=== PATIENT | male | born 1990 | race Caucasian/White ===

== ENCOUNTER 2025-04-19 07:47 | Outpatient (AMB) | payer BC, SELFPAY ==
--- NOTE | 2025-04-19 07:52 | A.OFFVIS_ITS ---
Intake Visit Reasons: Vasectomy consult Intake Note: New Patient is present for Vasectomy consult Urology Rx:none Blood Thinners:none Imaging completed: none Children#4 , Expecting #0 Press Operator Automatic Required: No Accompanied by: Self / Same As Patient Allergies No Known Allergies Allergy (Verified 04/19/25 08:41) Medication List - Last Reconciled 04/19/25 by ARLETTE Phillips No Known Home Meds HPI Comments Details: Dany is a very pleasant 34-year-old male patient of Dr. Pantoja. He presents to the office today for - vasectomy evaluation Vasectomy evaluation The patient presents for vasectomy consultation.? He is currently He has fathered 4 children, with 2 partners The youngest child is 3-month-old His partner is aware and permissive for a vasectomy Current form of control is hormones Current employment is heavy equipment sales associate The vasectomy may be complicated due to a history of no complicating issues. Patient education has been provided via [employer] video, via printed information, risks of failure, recovery time, bruising and potential pain syndrome have been stressed Discussion today focused on the presence of vasectomy and the risks, benefits and alternatives that are available. Vasectomy as intended as a permanent form of control. Printed information and literature was provided to the patient. Overall there is a one in 2500 failure rate. This can occur at any time after vasectomy. Risks were discussed highlighting hematoma, spermatocele, epididymal congestion, development of sperm antibodies, and development of chronic pain estimated between 1-5%. The procedure was reviewed in detail. Anatomical diagrams of the male genitalia were used to explain the location of the vas deferens. The vas deferens will be transected, the proximal end will be cauterized, a metal clip would be applied to separate the 2 vas deferens ends. It was explained the procedure will be done in the office and takes approximately 10-15 minutes. Less common problems that arise with vasectomy include hematoma, bleeding, al lergic reaction to anesthetic, epididymal infection, epididymal congestion, scrotal discomfort, spermatic leak, spermatic granuloma and the possibility of antisperm antibodies. He understands these risks and wishes to proceed. Consent was signed at the office today. He also understands that it takes 12 weeks for sperm to fully clear the system. He will need to provide a semen sample at 12 weeks and if this is not clear a 2nd sample at 16 weeks. Medical clearance to stop using protection will only be provided if he satisfies published criteria for sperm clearance. Review of Systems Const All systems reviewed & are unremarkable except as noted in HPI and below Physical Exam Const General: cooperative, healthy appearing, comfortable, no acute distress, well developed, alert and awake Orientation/consciousness: patient oriented x3 Limitations: no limitations HEENT Head: Yes normal to inspection, Yes normocephalic and Yes atraumatic Ears: hearing grossly normal bilaterally Eyes General: appearance normal, both eyes and all related structures Neck Neck: Yes normal visual inspection and Yes trachea midline Chest Chest palpation & inspection: normal inspection of the chest Resp Effort & Inspection: normal respiratory effort and able to speak in complete sentences Cardio Rate: regular rate GI Inspection: Yes normal to inspection General: Yes no CVA tenderness Back/Spine/Pelvis Back: no CVA tenderness Skin General skin exam: no rashes or lesions noted Neuro General: patient oriented x3 Extrem General: Yes normal to inspection Psych Appearance: grossly normal and well kempt Mental Status: mental status grossly normal Speech and movement: Normal speech and movement present and Clear speech present Affect: normal affect Attitude: cooperative Thought process: Normal thought process present Thought content: Normal thought content present Insight: Fair insight present (Psych) Judgement: Fair judgement present (Psych) Assessment & Plan Assessment & Plan (1) Anxiety about health: Code(s): R45.89 - Other symptoms and signs involving emotional state Category: Medical (2) Vasectomy evaluation: Code(s): Z30.09 - Encounter for other general counseling and advice on contraception Category: Medical Plan Vasectomy was discussed in detail; risks and benefits Consent was obtained All questions were answered Prescriptions provided; educated to bring medication to office day of procedure. Discussed in office semen analysis verses fellows kit; information provided Will schedule for in office vasectomy. Follow-up per doctor's orders; or sooner with any issues, concerns, or questions. Medications: New 2 diazepam (Valium) Bringing medication to office day of procedure 2 mg PO DAILY 2 tabs 0RF anxiety R45.89 - Other symptoms and signs involving emotional state tramadol Bringing medication to office day of procedure 50 mg PO Q8H PRN 9 tabs 0RF pain 3 days Patient Instructions: The patient had an opportunity to ask questions regarding the treatment plan. All questions were answered. Physical exam, labs, and imaging were discussed and reviewed in detail. As well as risks, benefits, and discussion of treatment choices. No major barriers to understanding were identified. The patient expressed understanding and agreement with the above treatment plan. The patient was made aware they should contact our office by phone for worsening of their current condition, the appearance of new symptoms, or with any questions or concerns. Compliance is encouraged with any medications and follow up testing that is ordered. It is a privilege to be allowed the opportunity to participate in? your urological care.? Again, if you have any questions or concerns If you have any questions or concerns please do not hesitate to contact me. The office is [phone]. This note is constructed using voice recognition software. While every effort has been made to ensure accuracy early childhood assistant errors may have been included. Yours sincerely, ARLETTE Phillips Coding Level of Care Code New Pt Level 4 (70668) Diagnoses Anxiety about health R45.89 Vasectomy evaluation Z30.09
--- OUTSIDE RECORDS SUMMARY | 2025-04-19 07:53 | XMS_ITS | Clinical Summary ---
Author Organization [facility] Address [facility] [place] [address] Care Team Providers Care Marketing Education Teacher Name Role Phone Unknown Primary Care Provider Unavailabl e Allergies No known active allergies Medications ibuprofen (ADVIL;MOTRIN) 200 mg Tablet Take 200 mg by mouth every 6 hours as needed for Pain. Active sertraline (ZOLOFT) 100 mg TabletIndication s:Anxiety Take 1 tablet by mouth daily. 90 tablet 1 07/24/2019 Active Active Problems Problem Noted Date Diagnosed Date Fever 04/25/2018 Appendicitis 04/18/2018 Depression 04/02/2017 Assessment & Plan (07/13/2017 8:37 AM EST): Well controlled on Sertraline Lightheadedness 04/02/2017 Anxiety 04/01/2017 Assessment & Plan (07/13/2017 8:39 AM EST): Well controlled on Sertraline. Discussed hydroxyzine for panic but pt declines as he feels he can manage symptoms. Bleeding nose 03/25/2017 Factor 5 Leiden mutation, heterozygous 7 Soft tissue mass 02/08/2017 Fatigue 02/02/2017 Pityriasis versicolor 02/02/2017 Swelling of joint, knee, right 02/02/2017 Dermatophytosis of body 01/29/2017 Immunizations Immunization Administration Dates Next Due Hepatitis B Adult (Engerix-B , Recombivax) 12/03/2000,07/08/2000,06/04/2000 Influenza Quadrivalent, Pres ervative Free 05/25/2018 MMR Vaccine LIVE 05/17/2000,03/14/1990 Polio Inactivated (IPOL) 12/24/1993,06/01,04/13/1989,1988 Td Adult (Decavac, Tenivac) 01/24/2010, 1 Tdap (Adacel, Boostrix) 12/24/1993,06/28,07/19/1989,1988,02/05/1989 Family History Medical History Relation Comments Anesthesia Reaction Neg Hx Bleeding Disorder Neg Hx Malignant Hyperthermia Neg Hx Pseudocholinesterase Deficiency Neg Hx Pulmonary Embolism Neg Hx Social History Tobacco Use Types Packs/Day Years Used Date Smoking Tobacco: Never Smokeless Tobacco: Never Alcohol Use Standard Drinks/Week Comments Yes 30 (1 standard drink = 0.6 oz pu re alcohol) only drinks on the weekend Sex and Gender Information Value Date Recorded Sex Assigned at Not on file Legal Sex Male 1:37 PM EDT Gender Identity Not on file Sexual Orientation Not on file Occupation 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 [employer] Not on file Not on yinka e Not on file Last Filed Vital Signs Vital Sign Reading Time Taken Comments Blood Pressure 132/72 05/25/2018 3:18 PM EDT Pulse 72 05/25/2018 3:18 PM EDT Temperature 36.6 C (97.8 F) 05/25/2018 3:18 PM EDT Respiratory Rate 16 04/26/2018 2:20 PM EDT Oxygen Saturation 96% 05/25/2018 3:18 PM EDT Inhaled Oxygen Concentration - - Weight 98 kg (216 lb) 05/25/2018 3:18 PM EDT Height 177.8 cm (5' 10 ) 04/25/2018 12:10 PM EDT Body Mass Index 30.99 04/25/2018 12:10 PM EDT Plan of Treatment Health Maintenance Due Date Last Done Comments HIV screen 2006 Hepatitis C Screening 2006 Lipid Screening 2006 Tetanus/Diphtheria/Pertussis Vaccines (2 - Tdap) 01/25/2010 01/24/2010, 03/10/2001, 12/24/1993, Additional history exists Covid-19 Vaccine ( - 2023-2 5 season) 2024 Influenza (Flu) vaccine (1 o f 1 - Influenza standard series) 04/30/2025 05/25/2018 Hepatitis B vaccine (0-59 yr s) and Risk Completed 12/03/2000, 07/08/2000, 06/04/2000 Insurance [facility] Advance Directives * Full Code (Latest Code Status on File) Date Activated Date Inactivated Comments 04/25/2018 3:40 PM 04/26/2018 6:35 PM Question Answer Comments Does patient have capacity to make decision: Yes * Full Code Date Activated Date Inactivated Comments 04/18/2018 11:00 AM 04/18/2018 5:51 PM Question Answer Comments Does patient have capacity to make decision: Yes Care Teams Marketing Education Teacher Relationship Specialty Start Date End Date Unknown None PCP - General 04/13/22
== END 2025-04-19 08:32 | disposition home or self-care (01) ==
LOC: HO.HUSH 07:48
PROVIDERS: PCP Internal Medicine; Visit Provider Nurse Practitioner Family
DX: R45.89 Other symptoms and signs involving emotional state (principal); Z30.09 Encounter for other general counseling and advice on contraception
CPT/HCPCS: 99204

== ENCOUNTER 2025-06-27 14:42 | Outpatient (AMB) | payer BC, SELFPAY ==
--- NOTE | 2025-06-27 15:09 | A.OFFVIS_ITS ---
Intake Visit Reasons: vasectomy Allergies No Known Allergies Allergy (Verified 04/19/25 08:41) HPI Comments Details: Dany is a very pleasant 34-year-old male patient of Dr. Pantoja. He presents to the office today for - vasectomy procedure Vasectomy procedure The patient presents for vasectomy procedure.? He is currently He has fathered 4 children, with 2 partners The youngest child is 3-month-old His partner is aware and permissive for a vasectomy Current form of control is hormones Current employment is mobile heavy equipment mechanic Review of Systems Const Denies chills and Denies fever(s) Card Reports no additional complaints and Denies syncope Resp Denies cough GI Denies abdominal pain and Denies heartburn Reports as per HPI and Denies change in libido Neuro Denies syncope Psych Denies change in libido Endo Denies change in libido Physical Exam Const General: cooperative, healthy appearing, comfortable and no acute distress Orientation/consciousness: patient oriented x3 HEENT Face and sinus: Yes normal facial exam Mouth: moist mucous membranes Neck Neck: Yes normal visual inspection, Yes full ROM and Yes trachea midline Chest Chest palpation & inspection: normal inspection of the chest Resp Effort & Inspection: normal respiratory effort, able to speak in complete sentences and no respiratory distress GI Inspection: Yes normal to inspection Back/Spine/Pelvis Cervical Spine: normal cervical lordosis Thoracic/Lumbar Spine: thoracic and lumbar spine normal to inspection Skin General skin exam: no rashes or lesions noted Neuro General: patient oriented x3, gait normal, tone normal and moves all extremities Extrem General: Yes normal to inspection and Yes capillary refill normal Office Procedures Vasectomy Details: Preoperative diagnosis: Anxiety regarding Postoperative diagnosis: Anxiety regarding unplanned Procedure: Bilateral vasectomy Informed consent had been completed. Preoperative and postoperative instructions were provided to the patient. The patient has transportation home identified at the completion of the procedure. Anti-anxiolytic prescription medication had been taken after consent verification and all questions answered. A limited amount of pain medication was also provided. The penis was elevated using a rubber band that was attached to the patient's shirt. Both vasa were palpated through the skin using a 3 finger technique and the penoscrotal junction was prepped with Betadine. After Betadine application the left vas was elevated using a 3 finger grasping technique. 1% lidocaine was used to create a subdermal bubble. Further anesthetic was then advanced using the 25-gauge needle along the vasa in a proximal fashion. Approximately 2 minutes were allowed to for local anesthetic uptake. Using the sharp spreading instrument the scrotal skin was spread longitudinally in line with the vasa until the subdermal layer had been divided. The vasa was then elevated from the scrotum using a ring clamp. Care was taken to elevate the superior portion of the vasa by rotating the ring clamp in a caudad direction. The battery powered cautery was used to divide the vasal sheath in a longitudinal direction on the exposed vasa and to strip the vasal sheath from the vasa. The sharp spreading instrument was used to further expose the vas within the vasal sheath. A 2nd narrower ring clamp was placed on the exposed vas and used to lift the vas from the vasal sheath. The cautery was used to divide vasal attachments and allow full exposure of a small loop of vasa. The sharp spreading instrument was then used to create a tunnel under the vasa and spread to allow the blood vessels of the vasa to retract from the vasa. A mosquito clamp was placed on the proximal portion of the vas. The battery- powered cautery was used to make a partial division in the proximal vas and then inserted in order to cauterize the proximal end of the vas. This was then cut and allowed to retract into the vasal sheath. The mosquito was then used to twist the vasa 180 degrees creating a fascial interposition as the proximal portion of the vas retracted in the vasal sheath. Using a 4-0 chromic suture the fascial interposition was sutured closed. The distal portion of the vas was then cut in order to obtain a segment of vasa. An open distal vas is preferred for minimizing postprocedure pain. The vasa were allowed to retract back into the scrotum. A small snap was then used to approximate the skin edges and allow hemostasis without placement of a suture. A similar procedure was repeated on the right side. He tolerated the procedure well. Triple antibiotic was applied. A gauze was applied. An ice pack was applied to assist with minimizing swelling. Postoperative instructions were confirmed. He understands the need to continue to use control methods. A semen sample should be brought for inspection under the microscope in 10-12 weeks. CPT 14078 Informed consent given: Yes Informed consent signed: Yes Time out checklist: patient, procedure, site marked/identified, positioning of patient, supplies available, allergies confirmed and team agrees on procedure Anesthetic used: other Specimens: vas segments not sent to pathology [id number] - Vasectomy Assessment & Plan Assessment & Plan (1) Anxiety about health: Code(s): R45.89 - Other symptoms and signs involving emotional state Category: Medical Plan Three-month follow-up semen analysis Patient Instructions: This note is constructed using voice recognition software. While every effort has been made to ensure accuracy 1st grade teacher errors may have been included. Imaging studies, laboratory and physical exam results were discussed and reviewed in detail. No major barriers to patient understanding were identified. An opportunity to ask questions regarding the treatment plan was provided. All questions were answered. The patient expressed understanding and agreement with the above treatment plan. The patient is aware they should contact our office by phone for worsening of their current condition or the appearance of new urologic symptoms. Compliance is encouraged with any medications and followup testing that is ordered. It is a privilege to participate in the urologic care of your patient. If you have any questions or concerns regarding treatment for the above conditions, or other urologic issues, please do not hesitate to contact me. The office telephone contact is [phone]. Sincerely, Dr Rogelio Vivas MD, [facility] - Urology Compassionate Specialist Care for the Genitourinary System Coding Level of Care Code Procedure Only Diagnoses Anxiety about health R45.89 CPT Codes Office Procedure - CPT: 33895 - Vasectomy ([id number])
--- OUTSIDE RECORDS SUMMARY | 2025-06-27 19:06 | XMS_ITS | Clinical Summary ---
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
== END 2025-06-27 15:57 | disposition home or self-care (01) ==
LOC: HO.HUSH 14:43
PROVIDERS: PCP Internal Medicine; Visit Provider Urology
DX: Z30.2 Encounter for sterilization (principal)
CPT/HCPCS: 55250

== ENCOUNTER → 2025-06-27 14:42 | Outpatient (BNVA) | payer BC, SELFPAY | PROVIDERS: PCP Internal Medicine; Visit Provider Urology | DX: Z30.2 Encounter for sterilization (principal); F41.8 Other specified anxiety disorders | CPT/HCPCS: 55250 ==